=== PATIENT | female | born 1935 | race Caucasian/White ===

== ENCOUNTER 2017-02-10 13:37 | Emergency (ER) | payer MEDICARE ==
[2017-02-10] MEDS ORDERED: Aspirin TAB* 325 MG PO ONE (13:49)
--- NOTE | 2017-02-10 13:54 | RAD ---
HISTORY: Neurological changes, code hitchcock COMPARISONS: None TECHNIQUE: Multiple contiguous axial CT scans were obtained of the head without intravenous contrast. FINDINGS: HEMORRHAGE/INFARCT: There is no hemorrhage or acute infarct. MASSES/SHIFT: There is no mass or shift. EXTRA-AXIAL SPACES: There are no extra-axial fluid collections. SULCI AND VENTRICLES: The sulci and ventricles are normal in size and position for the patient's stated age. CEREBRUM: There is hypoattenuation of the periventricular and subcortical white matter. BRAINSTEM: There are no focal parenchymal abnormalities. CEREBELLUM: There are no focal parenchymal abnormalities. VESSELS: The vessels are grossly normal. PARANASAL SINUSES: The paranasal sinuses are clear. ORBITS: The orbits are unremarkable. BONES AND SOFT TISSUE: No bone or soft tissue abnormalities are noted. OTHER: None IMPRESSION: 1. NO ACUTE INTRACRANIAL PATHOLOGY. 2. DIFFUSE INVOLUTIONAL CHANGE WITH CHRONIC SMALL VESSEL ISCHEMIC CHANGES. PRELIMINARY FINDINGS WERE DISCUSSED WITH DR. NARAYANAN IN THE EMERGENCY DEPARTMENT AT APPROXIMATELY 1:50 PM ON FEBRUARY 10, 2017..
--- NOTE | 2017-02-10 14:22 | RAD ---
HISTORY: Weakness COMPARISONS: March 03, 2016 VIEWS:1: Single frontal portable view of the chest at 1:12 PM FINDINGS: LINES AND TUBES: None. CARDIOMEDIASTINAL SILHOUETTE: The cardiomediastinal silhouette is normal for portable technique. PLEURA: The costophrenic angles are sharp. No pleural abnormalities are noted. LUNG PARENCHYMA: There is hyperinflation. ABDOMEN: The upper abdomen is clear. There is no subphrenic gas. BONES AND SOFT TISSUES: No bone or soft tissue abnormalities are noted. IMPRESSION: NO ACTIVE CARDIOPULMONARY DISEASE.
[2017-02-10] MEDS ORDERED: LORazepam TAB(*) 1 MG PO ONE (15:35)
[2017-02-10] MEDS ORDERED: Aspirin Low Dose CHEW TAB* 81 MG PO ONE (16:00)
[2017-02-10 16:36] LABS: Urine Bacteria 3+ (Absent); Urine Bilirubin Negative (Negative); Urine Glucose Negative (Negative); Urine Nitrite Positive (Negative)
[2017-02-10] MEDS ORDERED: Ciprofloxacin TAB* 500 MG PO ONE ×2 (16:47)
[2017-02-10 18:56] VITALS: BP 112/75
--- NOTE | 2017-02-10 21:16 | CONS ---
NEUROLOGIC CONSULTATION REPORT: DATE OF CONSULT: 02/10/17 LOCATION: The patient is in the emergency department. REQUESTING PROVIDER: Dr. Bahman Holman. REASON FOR CONSULT: Chai Lanier. HISTORY OF PRESENT ILLNESS: Carlita Acevedo is an 81-year-old woman with a history of Lewy body dementia and recent stroke resulting in left face and arm weakness 3 weeks ago, treated at [facility], who was brought in by ambulance from [facility] due to increase in left-sided weakness and slurred speech. The history is obtained from speaking with EMS, review of nursing notes from [facility] as well as brief discussion with the patient's healthcare proxy, which is her niece, Henny Townsend. Apparently, the patient was admitted to [facility] from [facility] on January 30. The initial nursing note indicates that she had a slight facial droop on the left and a minimal amount of drooling since the stroke. There is no specific mention of her arm or leg strength at that time. In discussing with Ms. Townsend , the patient did have residual left arm weakness and left facial weakness after her recent stroke, but Henny indicates that she did not have slurred speech as recently as a week ago. Today, apparently around 11 a.m., the patient was noted to have increase in her left-sided weakness and slurring of her speech and so was brought in for evaluation by ambulance. On my evaluation, the patient denies any problems with moving her arms or legs. She is not oriented to place, repeatedly indicating that she is in [place] and requesting that her physician of many years come and evaluate her rather than me, though she cannot give the name of that physician. She is difficult to evaluate since she is combative and uncooperative. PAST MEDICAL HISTORY: 1. Lewy body dementia. 2. 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 3. Hypertension. 4. Hyperlipidemia. HOME MEDICATIONS: 1. Aspirin 81 mg. 2. Atorvastatin 40 mg. 3. Lisinopril 5 mg twice daily. 4. Risperdal 0.25 mg twice daily started on February 06. 5. Lorazepam 0.5 mg twice daily started on February 06. ALLERGIES: CODEINE causes vomiting, PENICILLINS cause unknown reaction, SULFA causes unknown reaction. FAMILY HISTORY: Not obtainable at this time. SOCIAL HISTORY: Prior to her stroke, the patient was living in a memory care facility at [facility] in [place]. She is now at [facility] for rehab. REVIEW OF SYSTEMS: The patient denies any pain currently. PHYSICAL EXAM: Vial Signs: Temperature 99.1, blood pressure 118/74, heart rate 89, and oxygen saturation 96% on room air. On general examination, the patient is an elderly appearing woman in no acute distress. She is irritable and generally uncooperative. When nurses attempt to sit her up to remove her shirt and place EKG leads, she is resistant and with attempted placement of an IV, she had to be held down by three nurses and myself. She repeatedly indicates that she wants to be evaluated by her long- time physician, whom she cannot or will not name. On neurologic examination, she is not oriented to time or place. She indicates that she is in [place]. She cannot name the type of facility that she is in currently. She cannot state her age or the month. Her speech is mildly dysarthric, but understandable. Pupils are equal, round, and reactive to light from 3 to 2 mm bilaterally. There is no gaze preference. Her versions are full without obvious nystagmus. She blinks to threat more so in the right visual field than the left. She does not otherwise cooperate with testing of her visual mae. There is left lower facial droop, but she is able to activate it mildly on smiling. Her tongue protrudes in the midline. On motor examination, she actively resists movement in all of her extremities, but less so in the left upper extremity. Left upper extremity was initially flexed at the elbow across her waist and appeared to have increased tone as I initially tried to move it, but then became evident that she was simply resisting movements. With distraction, her tone seemed relatively normal, but she was unable to sustain the arm off the bed when elevated. 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 The right upper extremity and bilateral lower extremities appear to be full strength. She indicated that she was able to feel cold bilaterally, upper and lower extremities. Coordination testing cannot be completed. DIAGNOSTIC STUDIES/LAB DATA: A non-contrast head CT was obtained and personally reviewed, which shows some generalized atrophy as well as confluent hypodensities in the bilateral deep white matter with some additional apparent hypodensities in the right hemisphere, which may reflect recent subacute infarction, but this is unclear. There is no hemorrhage. Laboratory data is pending at the time of this dictation. Her EKG shows normal sinus rhythm. IMPRESSION AND PLAN: Carlita Acevedo is an 81-year-old female who apparently within the last 3 weeks suffered a right-hemispheric stroke resulting in left facial weakness and arm weakness and is brought in for evaluation of slurred speech and increase in her left-sided weakness. Given her recent stroke, she is not a candidate for tPA. I am not convinced that she has had a new stroke and she should have laboratory studies as well as urinalysis to investigate for potential systemic cause of apparent worsening of her stroke. At this time, I would continue her on her current medications after she passes the bedside swallow evaluation. In addition, I note that she has been recently started on both Risperdal and lorazepam, which could potentially be contributing to worsening of her behavior, especially the lorazepam. In addition this could potentially contribute to altered mental status though it seems from review of nursing notes that she has had some significant behavioral problems since she has been at [facility] as well. At this time, I would monitor her clinically for improvement in her dysarthria and apparent left-sided weakness and it will be helpful to get additional information from her niece once she arrives, and she is currently on her way. Thank you for this consultation. [id number]/CPS #: [id number] ELIF
--- NOTE | 2017-02-10 21:49 | ED ---
Frances Forte Erika, scribed for Mathew Holman MD on 02/10/17 at 1413 . Neurological HPI - HPI Summary HPI Summary: Patient is an 81-year-old female presenting to the ED with a CC of left-sided weakness. Patient was sent from the long term, who report that patient had a TIA affecting her left side a few days ago. They report she was last known well today at 11:09. At 11:09, they noticed patient had an increase in left-sided weakness, left facial droop, and slurred speech. Change was witnessed. Patient takes ASA. LEVEL 5 CAVEAT - DEMENTIA. - History of Current Complaint Stated Complaint: STROKE LIKE SYMPTOMS Last Known Well Date: 11:09 02/10/2017 Hx Obtained From: EMS, Medical Records - from long term Hx From Patient Unobtainable Due To: Dementia Onset/Duration: Started hours ago, Still Present Timing: Constant Current Severity: Moderate Character: Motor Weakness - L side, Impaired Speech, Other: - L facial droop TPA Considered: No - Allergy/Home Medications Allergies/Adverse Reactions: Allergies Allergy/AdvReac Type Severity Reaction Status Date / Time Codeine Allergy Vomiting Verified 02/10/17 14:06 Penicillins [PCN] Allergy Unknown Verified 02/10/17 14:06 Reaction Details Sulfa Antibiotics Allergy Unknown Verified 02/10/17 14:06 Reaction Details doxycyan ? Allergy See Comment Uncoded 02/10/17 14:06 Tetnacylno ? Allergy See Comment Uncoded 02/10/17 14:06 Home Medications: Home Medications Aspirin Low Dose CHEW TAB* [Aspirin Low Dose TAB*] 81 mg PO DAILY 02/10/17 [ History Confirmed 02/10/17] Atorvastatin* [Lipitor*] 40 mg PO 1700 02/10/17 [History Confirmed 02/10/17] LORazepam TAB(*) [Ativan 0.5 MG TAB (*)] 0.5 mg PO BID 02/10/17 [History Confirmed 02/10/17] Lisinopril TAB* [Prinivil TAB*] 5 mg PO BID 02/10/17 [History Confirmed 02/10/17 ] risperiDONE TAB* [RisperDAL*] 0.25 mg PO BID 02/10/17 [History Confirmed ] PMH/Surg Hx/FS Hx/Imm Hx Respiratory History: Denies: Hx Asthma, Hx Pneumonia Neurological History: Reports: Hx Dementia, Hx Transient Ischemic Attacks (TIA) Infectious Disease History: Denies: Hx Clostridium Difficile, Hx Hepatitis, Hx Human Immunodeficiency Virus (HIV), Hx of Known/Suspected MRSA, Hx Shingles, Hx Tuberculosis, Hx Known/ Suspected VRE, Hx Known/Suspected VRSA, History Other Infectious Disease - Family History Known Family History: Positive: Unknown - dementia - Social History [facility] Alcohol Use: None Hx Substance Use: No Substance Use Type: Reports: None Hx Tobacco Use: No Smoking Status (MU): Never Smoked Tobacco Review of Systems - ROS Summary Review of Systems Summary: LEVEL 5 CAVEAT - DEMENTIA ENT: Other - L facial droop Positive: Weakness - L sided, Slurred Speech All Other Systems Reviewed And Are Negative: No Physical Exam Triage Information Reviewed: Yes Vital Signs On Initial Exam: Temp Pulse Resp BP Pulse Ox 99.1 F 89 18 138/74 97 02/10/17 14:01 02/10/17 14:33 02/10/17 14:33 02/10/17 14:33 02/10/17 14:33 Vital Signs Reviewed: Yes Completion Of Physical Exam Limited Due To: Dementia, Level 5 Appearance: Positive: Well-Appearing, No Pain Distress Skin: Positive: Warm, Skin Color Reflects Adequate Perfusion, Dry Head/Face: Positive: Normal Head/Face Inspection Eyes: Positive: Normal ENT: Positive: Normal ENT inspection Neck: Positive: Supple, Nontender, Other: - No carotid bruits Respiratory/Lung Sounds: Positive: Clear to Auscultation, Breath Sounds Present Cardiovascular: Positive: RRR Abdomen Description: Positive: Nontender, Soft Bowel Sounds: Positive: Present Musculoskeletal: Positive: Other - LUE weakness Neurological: Positive: Slurred Speech, Other - LUE weakness. See NIH stroke scale Psychiatric: Positive: Affect/Mood Appropriate Diagnostics - Vital Signs Vital Signs Temp Pulse Resp BP Pulse Ox 02/10/17 18:00 112/75 02/10/17 17:30 91 16 116/69 95 02/10/17 17:00 84 18 129/77 96 02/10/17 16:31 20 02/10/17 16:30 82 19 134/71 96 02/10/17 16:00 82 17 117/77 96 02/10/17 15:30 87 17 113/69 96 02/10/17 15:00 89 17 120/70 98 02/10/17 14:33 89 18 138/74 97 02/10/17 14:01 99.1 F 91 19 118/74 96 02/10/17 14:00 118/74 02/10/17 13:50 99.7 F 88 16 96 - Laboratory Lab Results: Lab Results 02/10/17 Range/Units 16:22 Urine Color Yellow Urine Appearance Cloudy Urine pH 6.0 (5-9) Ur Specific Mehama 1.019 (1.010-1.030) Urine Protein 1+(30 mg/dl) H (Negative) Urine Ketones Negative (Negative) Urine Blood Negative (Negative) Urine Nitrate Positive H (Negative) Urine Bilirubin Negative (Negative) Urine Urobilinogen Negative (Negative) Ur Leukocyte Esterase 1+ H (Negative) Urine WBC (Auto) 3+(>20/hpf) H (Absent) Urine RBC (Auto) Absent (Absent) Ur Squamous Epith Cells Present H (Absent) Urine Bacteria 3+ H (Absent) Urine Glucose Negative (Negative) Urine Ascorbic Acid * H (Negative) Lab Statement: Any lab studies that have been ordered have been reviewed, and results considered in the medical decision making process. - Radiology CXR Radiology Interpretation Completed By: Radiologist - IMPRESSION: NO ACTIVE CARDIOPULMONARY DISEASE. - CT CT Brain CT Interpretation Completed By: Radiologist - IMPRESSION: 1. NO ACUTE INTRACRANIAL PATHOLOGY. 2. DIFFUSE INVOLUTIONAL CHANGE WITH CHRONIC SMALL VESSEL ISCHEMIC CHANGES. PRELIMINARY FINDINGS WERE DISCUSSED WITH DR. HOLMAN IN THE EMERGENCY DEPARTMENT AT APPROXIMATELY 1:50 PM ON FEBRUARY 10, 2017.. - EKG 14:00 Cardiac Rate: NL - at 90 bpm EKG Rhythm: Sinus Rhythm ST Segment: Non-Specific NIH Scale - NIH Scale Level of Consciousness: Alert/Keenly Responsive Ask Patient the Month and His/Her Age: Neither Correct/Aphasic Ask Pt to Open/Close Eyes and Ultrasound Specialist/Release Non-Paretic Hand: Both Correctly Best Gaze (Only Horizontal Eye Movement): Normal Visual Field Testing: No Visual Loss Facial Paresis-Pt to Smile & Close Eyes or Grimace Symmetry: Minor Paralysis Motor Function - Right Arm: No Drift-Holds 10 Seconds Motor Function - Left Arm: No Effort Against Mehama Motor Function - Right Leg: No Drift-Holds 10 Seconds Motor Function - Left Leg: No Drift-Holds 10 Seconds Limb Ataxia-Must be out of Proportion to Weakness Present: Absent Sensory (Use Pinprick to Test Arms/Legs/Trunk/Face): Normal Best Language (Describe Picture, Name Items): No Aphasia Dysarthria (Read Several Words): Slurs Some Words Extinction and Inattention: No Abnormality Total Score: 7 Re-Evaluation - Re-Evaluation First Eval Re-Evaluation Time: 15:05 Comment: Received report that niece does not think patient is different from 1 week ago when she saw her. Second Eval Re-Evaluation Time: 16:02 Comment: Spoke with patient's niece. Patient's niece does not want a central line placed. She agrees to a urinalysis. If UA reveals UTI, we will treat this. Third Eval Re-Evaluation Time: 16:46 Comment: Discussed positive UA results with patient and niece. Niece agrees with plan to treat UTI and discharge patient Course/Dx - Course Course Of Treatment: It was difficult to assess whether Ms. Acevedo was any different today than yesterday. He niece arrived and felt that she was the same. We had difficult getting a peripheral line or blood draw and I recommended a femoral attempt. The niece who is her proxy was against causing her any harm and since her U/A should a likely infection i agreed to treat the infection and see how she does. - Diagnoses Provider Diagnoses: UTI (urinary tract infection), Dehydration, mild During the Visit The Following Alert/Code Occurred: Code Moura - at 13:37 - Physician Notifications Discussed Care of Patient With: Dr. Hernandez (radiology) at 13:50 - reported Brain CT results. Dr. Garcia (neurology) at 14:01 - discussed patient's history. will see patient. Dr. Garcia (neurology) at 14:55 - recommends admission. states patient is not a candidate for TPA Discharge - Discharge Plan Condition: Stable Disposition: HOME Prescriptions: Ciprofloxacin TAB* [Cipro Tab*] 500 mg PO BID #18 tab Patient Education Materials: Urinary Tract Infection in Women (ED) Referrals: Yudelka MURILLO,Qi [Primary Care Provider] - Additional Instructions: Please follow up with your PCP. The documentation as recorded by the Frances way Erika accurately reflects the service I personally performed and the decisions made by me, Mathew Holman MD.
--- NOTE | 2017-02-12 07:31 | PN ---
Progress Note - Progress Note Note: Pt placed on cipro for UTI. Urine culture grew E coli >100,000. will wait for final culture.
--- NOTE | 2017-02-13 07:00 | PN ---
Progress Note - Progress Note Note: Patient placed on cipro which final culture shows is resistant to. Patient has unknown allergy to penicillin and sulfa antibiotics. do not have any record of kidney function as unable to get line in patient. Attempted to call primary and left voice message asking about kidney function and allergies. Attempted again and was unable to reach the doctor or his nurse. Will just have continue cipro as called [facility] and they do not know reaction to PCN either
== END 2017-02-10 18:54 | disposition home or self-care (01) ==
LOC: ED 13:37
DX: N39.0 Urinary tract infection, site not specified (principal); E86.0 Dehydration; F03.90 Unspecified dementia, unspecified severity, without behavioral disturbance, psychotic disturbance, mood disturbance, and anxiety; Z88.0 Allergy status to penicillin; Z88.2 Allergy status to sulfonamides; I69.892 Facial weakness following other cerebrovascular disease; I69.898 Other sequelae of other cerebrovascular disease; R47.81 Slurred speech; Z79.82 Long term (current) use of aspirin
CPT/HCPCS: 70450; 71010; 81003; 81015; 87077; 87086; 87186; 93005; 99285; A9270-GY